=== PATIENT | male | born 1985 | race African-American/Black ===

== ENCOUNTER 2018-03-21 10:50 | Emergency (ER) | payer BC ==
[2018-03-21] MEDS: CLINDAMYCIN HCL 150 MG CAPSULE. PO (11:43)
== END 2018-03-21 11:47 | disposition home or self-care (01) ==
LOC: ER 11:47
DX: J31.0 Chronic rhinitis (principal); K02.9 Dental caries, unspecified; K08.89 Other specified disorders of teeth and supporting structures
CPT/HCPCS: 99283